=== PATIENT | male | born 1950 | race Caucasian/White ===

== ENCOUNTER 2024-04-12 16:31 | Inpatient (IN) | payer MEDICARE, SELFPAY ==
[2024-04-12] VITALS (34 sets, daily range): BP systolic 99–167; BP diastolic 57–97; PULSE 54–108; RESP 18–32; TEMP 37.3–38.5; O2SAT 88–98; BMI 31.3; BMI 33.0
--- NOTE | 2024-04-12 16:53 | ED.FALL ---
HPI - Fall General Time Seen by Provider: 16:54 Date Seen: 04/12/24 Chief Complaint: Fall/Minor Trauma Stated Complaint: fall from tractor/short of breath Time Seen by Provider: 04/12/24 16:33 History of Present Illness HPI Narrative: This 73-year-old male is coming into the ER accompanied by his with complaint of significant right chest wall and flank pain after an injury on Saturday. He fell off the tractor off the stairs on Saturday when a rigoberto of wind swung the door opened. He lost his hold and fell onto the axle of his tractor on the right side. He got right back up and got into the tractor and went to work. Sleep has been difficult, has had to sleep in the chair for comfort. He cannot lie flat due to pain and difficulty breathing. He notes no fevers, there is maybe some cough. He has never had any congestive heart failure, is never been diagnosed with any COPD or emphysema. His notes that he got hit in the chest by a a 4000 lb bull, has had a history of chest trauma with that. They have not noted any fevers. He denies any lower extremity edema. No abdominal symptoms. Patient was noted to be hypoxic on arrival and did quickly expedite his evaluation. The trauma is noted to have happened 5 days ago. Patient is denying any significant difficulty breathing, does not really complain of being short of breath but when I press him on this, he does state that he might have some shortness of breath with this. Denies any back pain. complaint: fall Fall witnessed: no Loss of consciousness: No Related Data Home Medications ?Medication ?Instructions ?Recorded ?Confirmed lisinopril 10 1 tab PO DAILY 04/12/24 04/12/24 mg-hydrochlorothiazide 12.5 mg tablet Allergies Allergy/AdvReac Type Severity Reaction Status Date / Time No Known Drug Allergies Allergy Verified 04/12/24 16:43 Review of Systems Status of ROS: Reports: 6 or more systems reviewed and unremarkable except as noted in History and below [facility] Social History Smoking Status: Never smoker How often do you have a drink containing alcohol: monthly or less How often do you have six or more drinks on one occasion: Never AUDIT-C Alcohol total score: 1 Non-prescribed substance use: denies use Exam Const: Vital Signs, click to edit/add: Vital Signs - 24 hr 04/12/24 16:44 04/12/24 16:57 04/12/24 17:00 Temperature 99.2 F Pulse Rate Pulse Rate [Pulse Oximeter] 86 Respiratory Rate 32 H Blood Pressure Blood Pressure [Le ft Upper Arm] 167/97 H Pulse Oximetry 88 95 Oxygen Delivery Me thod Room Air Nasal Cannula Oxygen Flow Rate 5 04/12/24 17:17 04/12/24 17:30 04/12/24 17:33 Temperature Pulse Rate 97 81 95 Pulse Rate [Pulse Oximeter] Respiratory Rate Blood Pressure 153/92 H Blood Pressure [Le ft Upper Arm] Pulse Oximetry 94 88 90 Oxygen Delivery Me thod Nasal Cannula Nasal Cannula Nasal Cannula Oxygen Flow Rate 5 5 5 04/12/24 17:49 04/12/24 17:50 04/12/24 17:51 Temperature Pulse Rate 91 108 H 108 H Pulse Rate [Pulse Oximeter] Respiratory Rate Blood Pressure Blood Pressure [Le ft Upper Arm] Pulse Oximetry 92 93 90 Oxygen Delivery Me thod OxyMask OxyMask OxyMask Oxygen Flow Rate 8 8 8 04/12/24 18:00 04/12/24 18:02 04/12/24 18:03 Temperature Pulse Rate 106 H 98 100 Pulse Rate [Pulse Oximeter] Respiratory Rate Blood Pressure 146/92 H Blood Pressure [Le ft Upper Arm] Pulse Oximetry 94 94 95 Oxygen Delivery Me thod OxyMask OxyMask OxyMask Oxygen Flow Rate 8 8 8 04/12/24 18:04 04/12/24 18:15 04/12/24 18:17 Temperature Pulse Rate 91 95 Pulse Rate [Pulse Oximeter] Respiratory Rate 28 H Blood Pressure 111/79 Blood Pressure [Le ft Upper Arm] Pulse Oximetry 93 90 Oxygen Delivery Me thod OxyMask OxyMask Oxygen Flow Rate 8 8 04/12/24 18:30 04/12/24 18:32 04/12/24 18:45 Temperature Pulse Rate 95 86 89 Pulse Rate [Pulse Oximeter] Respiratory Rate Blood Pressure 124/77 Blood Pressure [Le ft Upper Arm] Pulse Oximetry 95 93 93 Oxygen Delivery Me thod OxyMask OxyMask OxyMask Oxygen Flow Rate 8 8 8 04/12/24 18:46 04/12/24 19:00 04/12/24 19:02 Temperature Pulse Rate 90 85 85 Pulse Rate [Pulse Oximeter] Respiratory Rate Blood Pressure 123/71 111/57 L Blood Pressure [Le ft Upper Arm] Pulse Oximetry 94 92 92 Oxygen Delivery Me thod OxyMask OxyMask OxyMask Oxygen Flow Rate 8 8 8 Patient is alert, interactive, in obvious discomfort, can barely touch his right lateral chest wall, there is bruising on the lower lateral chest wall into his flank and side area. He has oxygen on, is able to speak in short phrases. His glasses are fogging from the oxygen mask at times but underlying pupils look equal round, conjugate gaze, sclera clear. Face appears atraumatic. Denies any midline tenderness over his neck or his spine. Lungs have rhonchi and some crackles throughout come here no wheezing. CV regular rate and rhythm, do not appreciate any murmur, normal S1-S2, no S3-S4. Abdomen is soft, nondistended, nontender but this is done with him sitting up, is not tolerating lying back at this point. He has about 1+ to 2+ pretibial edema above his socks. Documenting provider has reviewed patient's vital signs: yes Course Course ED Course: This patient is hypoxic and possibly with low level temperature elevation. Have concerns for immediate evaluation with portable CXR to ensure no hemothorax or pneumothorax. Will be obtaining CT of chest abdomen pelvis as well if there is stability on his chest x-ray. If there is acute traumatic change visualized on the chest x-ray, may need to consider immediate transfer to a tertiary trauma center. He will be getting supplemental oxygen, will have him on hemodynamic monitoring with cardiac monitoring and pulse oximetry. Portable chest x-ray visualized after was done and I do not see any pneumothorax no definite significant effusion or consolidation. Patient will be proceeding to CT imaging. Nursing staff does not feel that he will tolerate lying flat, we will give him fentanyl and Zofran. Reevaluation(s) Time of Reevaluation #1: 18:27 Reevaluation #1: Patient is feeling much better, states he has no pain now. He is actually resting in falling asleep. He does sound a bit gurgly, have discussed with him he should try to cough if he feels like he needs to. Have reviewed with he and his and they would not want intubation if he should become ill enough to need it. Did review that on my preliminary review of his imaging, believe him to have posttraumatic pneumonia likely from poor mechanics of breathing. We have initiated Rocephin and azithromycin, he is getting the Rocephin right now. We are awaiting formal imaging review by Radiology of his CT scans. Consultations Consultation #1: After receiving phone call from Radiology in reviewing his CT findings, have discussed with hospitalist Dr. Love. Patient has right posterior 7 through 9 rib fractures left 11th rib fracture. She is able to see acute PE in the proximal segmental right upper lobe, small amount. There is motion artifact. There is a small right effusion as well as dense consolidation in the right base consistent with pneumonia. Dr. Love would like this patient started on heparin given that there is recent trauma. Antibiotics have already been started. He is receiving supplemental oxygen. His pain is currently controlled. Did ask if he wanted me to contact our general surgeons but this patient is 5 days post trauma, complication seem to be pneumonia and the pulmonary embolus. Dr. Love does not feel it is necessary to contact the surgeons, 1 of the reasons he is starting heparin is given that this is in relation to recent trauma and may need these of stopping the heparin if there is bleeding complication. Time: 19:03 Vital Signs Vital signs: Initial Vital Signs Temperature 99.2 F 04/12/24 16:44 Temperature Source Temporal Artery Scan 04/12/24 16:44 Pulse Rate 86 04/12/24 16:44 Respiratory Rate 32 H 04/12/24 16:44 Blood Pressure 167/97 H 04/12/24 16:44 Blood Pressure Mean 120 H 04/12/24 16:44 Blood Pressure Position Sitting 04/12/24 16:44 Pulse Oximetry 88 04/12/24 16:44 Oxygen Delivery Method Room Air 04/12/24 16:44 Vital Signs Temperature 99.2 F 04/12/24 16:44 Pulse Rate 86 04/12/24 16:44 Respiratory Rate 32 H 04/12/24 16:44 Blood Pressure 167/97 H 04/12/24 16:44 Pulse Oximetry 88 04/12/24 16:44 Oxygen Delivery Method Room Air 04/12/24 16:44 Temperature 99.2 F 04/12/24 16:44 Pulse Rate 85 04/12/24 19:02 Respiratory Rate 28 H 04/12/24 18:04 Blood Pressure 111/57 L 04/12/24 19:02 Pulse Oximetry 92 04/12/24 19:02 Oxygen Delivery Method OxyMask 04/12/24 19:02 Oxygen Flow Rate 8 04/12/24 19:02 Medications Administered Medications: Generic Name Dose Route Start Last Admin Trade Name Freq PRN Reason Stop Dose Admin Heparin Sodium/Dextrose 25,000 unit in 500 mls @ 0 mls/hr 04/12/24 19:15 04/12/24 19:23 Heparin IV 1,500 unit/hr .Q0M LEEANN 30 mls/hr Administration Protocol Per Protocol Discontinued Medications Generic Name Dose Route Start Last Admin Trade Name Freq PRN Reason Stop Dose Admin Fentanyl 50 mcg 04/12/24 17:18 04/12/24 17:27 Fentanyl 100 Mcg/2 Ml Inj IVP 04/12/24 17:19 50 mcg ONCE ONE Administration Heparin Sodium (Porcine) 7,300 unit 04/12/24 19:04 04/12/24 19:24 Heparin 5,000 Unit/0.5 Ml Inj 80 unit/kg (7300 unit) 04/12/24 19:05 7,300 unit IVP Administration ONCE ONE Ceftriaxone Sodium 1 gm/ 100 mls @ 200 mls/hr 04/12/24 18:02 04/12/24 18:45 Sodium Chloride IVPB 04/12/24 18:03 Infused ONCE ONE Infusion Azithromycin 500 mg/ Sodium 255 mls @ 255 mls/hr 04/12/24 18:09 04/12/24 18:45 Chloride IVPB 04/12/24 18:10 255 mls/hr ONCE ONE Administration Ondansetron HCl 4 mg 04/12/24 17:18 04/12/24 17:26 Ondansetron 2 Mg/Ml Inj IVP 04/12/24 17:19 4 mg ONCE ONE Administration MDM - Fall Lab Data Attestation: I reviewed the patient's lab results. Labs: Lab Results 04/12/24 04/12/24 Range/Units 16:59 17:00 WBC 15.68 H (4.50-11.00) K/uL RBC 4.90 (4.30-5.90) m/uL Hgb 15.0 (13.5-17.5) gm/dL Hct 46.2 (37.0-53.0) % MCV 94 (80-100) fL MCH 31 (26-34) pg MCHC 33 (32-36) gm/dL RDW Coeff of Milka 12.8 (11.5-15.5) % Plt Count 293 (140-440) K/uL Neut % (Auto) 82.3 H (42.0-72.0) % Lymph % (Auto) 6.4 L (20-44) % [place] % (Auto) 10.8 (0.0-11.0) % Eos % (Auto) 0.2 (0.0-7.0) % Baso % (Auto) 0.2 (0.0-3.0) % Neut # (Auto) 12.90 H (1.7-7.0) K/uL Lymph # (Auto) 1.00 (0.90-2.90) K/uL [place] # (Auto) 1.70 H (0.00-0.90) K/UL Eos # (Auto) 0.00 (0.00-0.50) K/uL Baso # (Auto) 0.00 (0.00-0.30) K/uL Abs Immat Gran (auto) 0.00 (0.00-0.30) K/uL Imm/Tot Granulo (auto) 0.1 % INR 1.06 (0.91-1.10) APTT 29 (23-33) Seconds D-Dimer Quant (PE/DVT) 3.44 H (0.00-0.50) ug/ml VBG pH 7.422 (7.32-7.43) VBG pCO2 46 (40-50) mmHG VBG pO2 < 30.1 (25-47) mmHG VBG HCO3 30 H (21-28) mmol/L Sodium 138 (135-149) mmol/L Potassium 4.1 (3.6-5.1) mmol/L Chloride 101 (96-114) mmol/L Carbon Dioxide 28 (20-32) mmol/L Anion Gap 9 (7-15) mEq/L BUN 20 (7-30) mg/dL Creatinine 0.7 (0.5-1.5) mg/dL Estimated Creat Clear 59.67 Estimated GFR 96 ml/min Glucose 133 H (60-115) mg/dL Lactate 1.7 (0.5-1.9) mmol/L Calcium 9.7 (8.4-10.6) mg/dL Total Bilirubin 1.3 (0.1-1.5) mg/dL AST 28 (12-35) U/L ALT 29 (4-50) U/L Alkaline Phosphatase 40 (40-150) U/L Total Creatine Kinase 59 (54-186) U/L Troponin I < 0.01 L (0.01-0.04) ng/mL C-Reactive Protein 6.0 H (0.5-1.0) mg/dL NT-Pro-B Natriuret Pep 306 pg/mL Total Protein 7.9 (6.0-8.3) g/dL Albumin 4.4 (3.3-5.0) g/dL SARS-CoV-2 (PCR) Negative SARS-CoV-2 (Negative) Influenza Type A (PCR) Negative PCR FLU A (Negative) Influenza Type B (PCR) Negative PCR FLU B (Negative) RSV (PCR) Negative PCR RSV (Negative) POC Creatinine 0.7 (0.6-1.3) mg/dl POC Troponin I 0.00 L (0.01-0.04) ng/ml Imaging Data Chest x-ray: Attestation: I have reviewed the pertinent imaging results. Radiologist's impression: Patient: PARIS ELLIE Facility:?[facility] Patient ID:?[id number] Site Patient ID:?[id number]. Site :?[id number] Study:?XRay-Chest Portable-04/12/2024 5:17:53 PM Ordering Physician:?Kari Solorzano Final Report: INDICATION: Trauma, hypoxic TECHNIQUE: Chest 1 views. COMPARISON: 04/30/2021 FINDINGS: Cardiovasculature and mediastinum: Similar cardiomegaly and aortic arch calcifications. Unremarkable mediastinum. Lungs and pleural spaces: Patchy opacities in the right lung base and left upper lung are new compared to 2020. No large pleural effusion or pneumothorax. Bones and soft tissues: Degenerative change of the bilateral glenohumeral joints IMPRESSION: 1. Patchy opacities in the right lung base and left upper lung are new compared to 2020 and could reflect edema or multifocal pneumonia. 2. Similar cardiomegaly. Dictated by Dottie Robledo MD @ 04/12/2024 5:47:07 PM (Electronic Signature) CT Chest/Ab/Pelvis: Attestation: I have reviewed the pertinent imaging results. Radiologist's impression: Patient: PARIS ARGUETA Facility:?[facility] Patient ID:?[id number] Site Patient ID:?[id number]. Site :?[id number] Study:?CT-Chest/Abd/Pelvis W/ 98CC [id number]/13/2024 5:48:17 PM Ordering Physician:?Kari Solorzano Final Report: INDICATION: Hypoxia, chest wall trauma Saturday. TECHNIQUE: CT of the chest, abdomen, and pelvis acquired with 98 cc Isovue 370 IV contrast. Coronal and sagittal reconstructions. COMPARISON: CT chest 04/30/2021. FINDINGS: CHEST: Cardiovascular structures: Mild cardiomegaly. Normal caliber thoracic aorta and central pulmonary arteries. Coronary artery and aortic vascular calcifications. Evaluation of the pulmonary arteries is limited by motion artifact and contrast bolus timing, however there appear to be acute pulmonary emboli within proximal segmental branches of the right upper lobe (series 2 images 31-33). No other definite pulmonary emboli. No findings to suggest right heart strain. Mediastinum and dolly: No pathologically enlarged lymph nodes. No pericardial effusion or mediastinal hematoma. Lungs and pleura: Small right pleural effusion. There is dense consolidation in the medial right lower lobe with air bronchograms and surrounding micronodular opacities. Findings are suspicious for pneumonia. Additional nodular ground-glass opacities in the right middle lobe. No pneumothorax. New 5 mm noncalcified pulmonary nodule in the lateral right lower lobe (series 3 image 51). Right lung bronchial wall thickening and probable debris in the trachea/mainstem bronchi. Chest wall: No mass or adenopathy. Bones: Degenerative changes of the spine with multilevel bridging anterior vertebral body osteophytes. Chronic mild anterior wedging of the T12 vertebral body. Chronic discontinuity of the bridging osteophyte at T11-12. Stable bone island in the T11 vertebral body. Sclerotic lesion in the C7 vertebral body which was partially visualized on the prior exam. Old left clavicle fracture. Acute nondisplaced fractures of the right posterior 7th-9th ribs. Acute nondisplaced fracture of the left posterior 11th rib. ABDOMEN/PELVIS: Liver: Normal in size and attenuation. No suspicious masses. Gallbladder and bile ducts: Cholelithiasis with a large stone in the gallbladder neck but no signs of gallbladder inflammation. No biliary dilation. Spleen: Unremarkable. Pancreas: Unremarkable. Adrenal glands: Unremarkable. Kidneys, Ureters, and Bladder: Symmetric enhancement. No hydronephrosis or obstructing urinary calculi. No significant bladder wall thickening. Reproductive organs: Enlarged prostate gland with a 3 cm masslike nodule in the left posterior gland as well as a nodular density in the left seminal vesicles (series 7 images 105-111). GI tract/Peritoneum: No small bowel dilation. Moderate amount of stool throughout the colon. Colonic diverticulosis without evidence of diverticulitis. Negative appendix. No intraperitoneal free air or fluid. Vasculature: Abdominal aorta is normal in caliber. Aortoiliac vascular calcifications. Mesenteric arteries appear patent. Lymph nodes: Mildly prominent left pelvic sidewall lymph nodes. Abdominal wall: Fat containing umbilical hernia. Subcutaneous fat stranding in the right anterior abdominal wall. Bones: Degenerative changes of the spine. Chronic L1 compression fracture with progressive degenerative disc disease at L1-L2 since prior exam. Mild retrolisthesis of L2 on L3. No acute fracture identified. IMPRESSION: 1. Acute pulmonary emboli within proximal segmental branches of the right upper lobe. No findings to suggest right heart strain. 2. Small right pleural effusion with dense right lower lobe consolidation and additional nodular ground-glass opacities suspicious for pneumonia. 3. Acute nondisplaced fractures of the right posterior 7th-9th ribs and left posterior 11th rib. 4. Enlarged prostate gland with masslike nodules in the left gland and left seminal vesicles. Correlate with PSA and digital rectal exam. 5. Subcutaneous fat stranding in the right anterior abdominal wall could relate to contusion. 6. Findings discussed with Jeanine Pierce at 6:57 p.m. on 04/12/2024. Please note that all CT scans at this facility use dose modulation, iterative reconstruction, and/or weight-based dosing when appropriate to reduce radiation dose to as low as reasonably achievable. Dictated by Yvonne Simmons MD @ 04/12/2024 6:59:34 PM (Electronic Signature) ECG Data Attestation: I personally reviewed and interpreted this ECG as follows: (Sinus rhythm with PVCs, 91 beats per minute. There is certainly artifact but appears to have possible anterior precordial ST segment depression, difficult given the artifact.) ECG interpretation date: 04/12/24 ECG interpretation time: 17:15 Discharge Plan Discharge Clinical Impression: Hypoxia Multiple fractures of ribs Qualifiers: Encounter type: initial encounter Fracture type: closed Laterality: bilateral Qualified Code(s): S22.43XA - Multiple fractures of ribs, bilateral, initial encounter for closed fracture Pneumonia Qualifiers: Pneumonia type: due to unspecified organism Laterality: right Lung location: lower lobe of lung Qualified Code(s): J18.9 - Pneumonia, unspecified organism Pulmonary embolism Qualifiers: Pulmonary embolism type: single subsegmental (without acute cor pulmonale) Qualified Code(s): I26.93 - Single subsegmental thrombotic pulmonary embolism without acute cor pulmonale Patient Disposition: Admitted As Observation Prescriptions: No Action lisinopril-hydrochlorothiazide 10-12.5 mg tablet 1 tab PO DAILY Follow Up/Referrals: Provider,Not a Local [Primary Care Provider] - Stand Alone Forms: Fin Quiver Info Instructions
--- NOTE | 2024-04-12 16:57 | CRLHL7_ITS ---
For Patients: As a result of the Century Cures Act, medical imaging exams and procedure reports are released immediately into your electronic medical record. You may view this report before your referring provider. If you have questions, please contact your health care provider. INDICATION: Trauma, hypoxic TECHNIQUE: Chest 1 views. COMPARISON: 04/30/2021 FINDINGS: Cardiovasculature and mediastinum: Similar cardiomegaly and aortic arch calcifications. Unremarkable mediastinum. Lungs and pleural spaces: Patchy opacities in the right lung base and left upper lung are new compared to 202. No large pleural effusion or pneumothorax. Bones and soft tissues: Degenerative change of the bilateral glenohumeral joints IMPRESSION: 1. Patchy opacities in the right lung base and left upper lung are new compared to 202 and could reflect edema or multifocal pneumonia. 2. Similar cardiomegaly. Dictated by Dottie Robledo MD @ 04/12/2024 5:47:07 PM (Electronically Signed)
--- NOTE | 2024-04-12 16:57 | CRLHL7_ITS ---
For Patients: As a result of the Century Cures Act, medical imaging exams and procedure reports are released immediately into your electronic medical record. You may view this report before your referring provider. If you have questions, please contact your health care provider. INDICATION: Hypoxia, chest wall trauma Saturday. TECHNIQUE: CT of the chest, abdomen, and pelvis acquired with 98 cc Isovue 370 IV contrast. Coronal and sagittal reconstructions. COMPARISON: CT chest 04/30/2021. FINDINGS: CHEST: Cardiovascular structures: Mild cardiomegaly. Normal caliber thoracic aorta and central pulmonary arteries. Coronary artery and aortic vascular calcifications. Evaluation of the pulmonary arteries is limited by motion artifact and contrast bolus timing, however there appear to be acute pulmonary emboli within proximal segmental branches of the right upper lobe (series 2 images 31-33). No other definite pulmonary emboli. No findings to suggest right heart strain. Mediastinum and dolly: No pathologically enlarged lymph nodes. No pericardial effusion or mediastinal hematoma. Lungs and pleura: Small right pleural effusion. There is dense consolidation in the medial right lower lobe with air bronchograms and surrounding micronodular opacities. Findings are suspicious for pneumonia. Additional nodular ground-glass opacities in the right middle lobe. No pneumothorax. New 5 mm noncalcified pulmonary nodule in the lateral right lower lobe (series 3 image 51). Right lung bronchial wall thickening and probable debris in the trachea/mainstem bronchi. Chest wall: No mass or adenopathy. Bones: Degenerative changes of the spine with multilevel bridging anterior vertebral body osteophytes. Chronic mild anterior wedging of the T12 vertebral body. Chronic discontinuity of the bridging osteophyte at T11-12. Stable bone island in the T11 vertebral body. Sclerotic lesion in the C7 vertebral body which was partially visualized on the prior exam. Old left clavicle fracture. Acute nondisplaced fractures of the right posterior 7th-9th ribs. Acute nondisplaced fracture of the left posterior 11th rib. ABDOMEN/PELVIS: Liver: Normal in size and attenuation. No suspicious masses. Gallbladder and bile ducts: Cholelithiasis with a large stone in the gallbladder neck but no signs of gallbladder inflammation. No biliary dilation. Spleen: Unremarkable. Pancreas: Unremarkable. Adrenal glands: Unremarkable. Kidneys, Ureters, and Bladder: Symmetric enhancement. No hydronephrosis or obstructing urinary calculi. No significant bladder wall thickening. Reproductive organs: Enlarged prostate gland with a 3 cm masslike nodule in the left posterior gland as well as a nodular density in the left seminal vesicles (series 7 images 105-111). GI tract/Peritoneum: No small bowel dilation. Moderate amount of stool throughout the colon. Colonic diverticulosis without evidence of diverticulitis. Negative appendix. No intraperitoneal free air or fluid. Vasculature: Abdominal aorta is normal in caliber. Aortoiliac vascular calcifications. Mesenteric arteries appear patent. Lymph nodes: Mildly prominent left pelvic sidewall lymph nodes. Abdominal wall: Fat containing umbilical hernia. Subcutaneous fat stranding in the right anterior abdominal wall. Bones: Degenerative changes of the spine. Chronic L1 compression fracture with progressive degenerative disc disease at L1-L2 since prior exam. Mild retrolisthesis of L2 on L3. No acute fracture identified. IMPRESSION: 1. Acute pulmonary emboli within proximal segmental branches of the right upper lobe. No findings to suggest right heart strain. 2. Small right pleural effusion with dense right lower lobe consolidation and additional nodular ground-glass opacities suspicious for pneumonia. 3. Acute nondisplaced fractures of the right posterior 7th-9th ribs and left posterior 11th rib. 4. Enlarged prostate gland with masslike nodules in the left gland and left seminal vesicles. Correlate with PSA and digital rectal exam. 5. Subcutaneous fat stranding in the right anterior abdominal wall could relate to contusion. 6. Findings discussed with Jeanine Pierce at 6:57 p.m. on 04/12/2024. Please note that all CT scans at this facility use dose modulation, iterative reconstruction, and/or weight-based dosing when appropriate to reduce radiation dose to as low as reasonably achievable. Dictated by Yvonne Simmons MD @ 04/12/2024 6:59:34 PM (Electronically Signed)
[2024-04-12 17:13] LABS: HCO3 VBG 30 mmol/L (21-28); Lactate* 1.7 mmol/L (0.5-1.9); PCO2 VBG 46 mmHG (40-50); PO2 VBG < 30.1 mmHG (25-47); pH VBG 7.422 (7.32-7.43)
--- OUTSIDE RECORDS SUMMARY | 2024-04-12 17:15 | XMS_ITS | Data Portability ---
Author Organization [facility], [facility] Address [address] [place] [address] Assessment Encounter Date Assessment Date Assessment LastModified by Organization Details LastModified Time 05/08/2023 05/08/2023 72 year old male with elevated PSA of uncertain prognosis [email or web address] Not available 05/08/2023 13:40:55 Plan of Treatment Reminders Order Date Submit Date Provider Last Modified By Organization Details Last Modified Time Details Appointments None record ed. Lab None record ed. Referral None record ed. Procedures None record ed. Surgeries None record ed. Imaging None record ed. Medication Orders None record ed. Patient TargetsNo targets recorded. Patient InstructionsNo instructions recorded. Reason for Referral None Reported. Results Created Date Observation Date Name Description Value Unit Range Abnormal Flag Note LastModifiedBy Organization Detail LastModifiedTime Result Notes None recorded. Procedures Surgical History Date Name Laterality Status Provider Name and Address Organization Details Recorded Time total knee replacement completed Charlotte Garner [facility] 05/08/2023 11:51:29 Imaging Results None recorded. Procedure Notes None recorded. Medical Equipment None Reported. Allergies No known drug allergies Medications Name Sig Start Date Stop Date Status Note LastModified by Organization Details LastModified Time terbinafine HCl 250 mg tablet TAKE 1 TABLET BY MOUTH ONCE DAILY active Not Available Not Available No t Available cephalexin 500 mg capsule TAKE 2 CAPSULES BY MOUTH TWICE DAILY FOR 7 DAYS active Not Available Not Available No t Available lisinopril 10 mg-hydrochlor othiazide 12.5 mg tablet TAKE 1 TABLET BY MOUTH ONCE DAILY active Not Available Not Available No t Available Vitals Date Recorded Body weight Body mass index (BMI) Body height Provider Name and Address Organization Details Last Updated DateTime 05/08/2023 75606.95 g 35.9 kg/m2 165.1 cm Charlotte Garner [facility] 05/08/2023 11:50:15 Social History Question Answer Notes LastModified by Organizat ion Details LastModified Time Tobacco Smoking Status Never Smoker Charlotte brown [facility] 05/08/2023 11:51:13 What Is Your Level Of Alcohol Consumption? Occasional Information not available 05/08/2023 What Was The Date Of Your Most Recent Tobacco Screening? 05/08/2023 Information not available 05/08/2023 Has Tobacco Cessation Counseling Been Provided? No Information not available 05/08/2023 Do You Or Have You Ever Used Any Other Forms Of Tobacco Or Nicotine? No Information not available 05/08/2023 Sex: Unknown Functional Status None recorded. Mental Status None recorded. Family History Relationship Description Onset Age of this Age Resolved Age Notes LastModified by Organization Details LastModified Time Paternal Uncle Family history of breast cancer [email or web address] Not available 01/2023 11:51:01 Medical History Condition Response Other N High Blood Pressure Y Kidney Stones N Lung Disease N Depression N GERD/Acid Reflux N Diabetes N Sexually Transmitted Infection N Bleeding Disorder N Cancer N High Cholesterol N Heart Disease N Immunizations Vaccine Type Date Status Provider Name and Address Organization Details Recorded Time Influenza, adjuvanted, quadrivalent, PF [facility]17[facility] 11:50:26 pneumococcal polysaccharide PPV23 01/27/2021 completed Charlotte brown [facility] 05/08/2023 11:50:27 [facility]dap 05/21/2016 [facility] 11:50:27 Pneumococcal conjugate PCV 13 05/21/2016 completed Charlotte brown [facility] 05/08/2023 11:50:27 Influenza, split virus, trivalent, preservative 04[facility]26/2010 [facility]23 11:50:27 Td (adult), 2 Lf tetanus toxoid, preservative free, adsorbed [facility]/19/2005 [facility] 11:50:27 Past Encounters Encounter ID Performer Location Encounter Start Date Encounter Closed Date Diagnosis/Indication Diagnosis SNOMED-CT Code Diagnosis ICD10 Code [id number] Laith Rodriguez MD [facility] [address] [place] [id number] 05/08/2023 11:29:46 05/14/2023 09:29:55 Prostate specific antigen above reference range 616594173 R97.20 Health Concerns Section Related Observation LastModified by Organization Detai ls LastModified Time None Recorded Concern Status LastModified by Organization Details LastModified Time None Recorded Advance Directives Directive None Recorded Payers Encounter Date Sequence Insurance Name Policy Number Policy Feng Covered Member ID Feng Member ID Guarantor Name 05/08/2023 1 [employer] (MEDICARE [place]PLACEMENT PPO) [id number] Chin Kemp [id number] Chin Kemp Notes Date Note Type Note Provider Name and Address Organization Details Recorded Time 05/08/2023 text/html HPI Notes: Mr. Kemp is a pleasant 72 year old gentleman who is referred to me by his primary care provider, Jelena NELSON, regarding elevated PSA. Patient has undergone PSA screening as part of his annual well visit and has been noted to be elevated. Initially measured at 36.8 ng/mL, recheck confirmed elevation to 40.1 ng/mL Family history of prostate cancer: None. Sister of breast cancer at age 48 yrs. Seen today with his who provides some of the history. Laith Rodriguez MD [address] [place] [address],[address], [place], [address], [facility] Urology 05/08/2023 13:40:59
--- OUTSIDE RECORDS SUMMARY | 2024-04-12 17:15 | XMS_ITS | Clinical Summary ---
Author Organization [facility] Address [place], [place] [address] Care Team Providers Care Rn Sane Name Role Phone Kendrick Haddad Primary Care Provider [phone] Allergies No known active allergies Medications Medication Sig Dispensed Refills Start Date End Date Status lisinopril-hydrochlor othiazide (10-12.5 mg) tablet (PRINZIDE; ZESTORETIC)Indication s:HTN (hypertension) Take 1 Tablet by mouth once daily. 90 Tablet 3 04/02/2023 Active terbinafine HCL (LAMISIL) 250 mg tabletIndications:Perla lulitis of skin Take 1 Tablet (250 mg) by mouth once daily. 30 Tablet 05/07/2023 Active Active Problems Problem Noted Date Diagnosed Date Mild dementia without behavi oral disturbance, psychotic disturbance, mood disturbance, or anxiety, unspecified dementia type 04/25/2022 Paroxysmal atrial fibrillati on with rapid ventricular response 04/25/2022 Hammer toe 05/10/2016 display director (current) use of anticoagulants 2009 Overview (08/01/2009): INR goal Range 1.5 - 2.5 HTN (hypertension) Resolved Problems Problem Noted Date Diagnosed Date Resolved Date Toe ulcer, right 04/22/2016 12/19/2017 Immunizations Name Administration Dates Next Due Influenza, IIV3 (Age >=3 years) 04/26/2010 Influenza, Inactivated AIIV4 (Age 65+ Years) Preserv Free 05/17/2021 Pneumococcal Poly,23-Valent (Pneumovax) 01/28/20 21 Pneumococcal conj 13-Valent (Prevnar 13) 016 Td (Age >=7 Years) 01/19/2005 Tdap 05/21/2016 Family History Medical History Relation Name Comments Diabetes Brother 1 Hilario Unknown Brother 2 Joby Other Father Alzheimers- d at age 80 Arthritis Mother Heart Disease Mother Cancer-breast Sister Analy Good Health Son Relation Name Status Comments Brother 1 Hilario Alive Brother 2 Joby Alive Father Maternal Grandfather Maternal Grandmother Mother Paternal Grandfather Paternal Grandmother Sister Analy Son Alive Social History Tobacco Use Types Packs/Day Years Used Date Smoking Tobacco: Never Smokeless Tobacco: Never Tobacco Cessation:Counseling Given: Yes Alcohol Use Standard Drinks/Week Comments Yes 1 (1 standard drink = 0.6 oz pur e alcohol) one beer per week or less PHQ-2 Answer Date Recorded PHQ-2 TOTAL SCORE 1 04/02/2023 Social Connections Answer Date Recorded Frequency of Communication with Friends and Fami ly Not on file 06/29/2021 Financial Resource Strain Answer Date R ecorded Difficulty of Paying Living Expenses Not on file 06/29/2021 Difficulty of Paying Living Expenses Not on file 06/29/2021 Sex and Gender Information Value Date Recorded Sex Assigned at Not on file Gender Identity Not on file Sexual Orientation Not on file Obstetrics History Last Filed Vital Signs Vital Sign Reading Time Taken Comments Blood Pressure 134/66 05/01/2023 1:10 PM CDT Pulse 52 05/01/2023 1:10 PM CDT Temperature 36.6 ??C (97.8 ??F) 05/01/2023 1:10 PM CD T Respiratory Rate - - Oxygen Saturation 97% 05/01/2023 1:10 PM CDT Inhaled Oxygen Concentration - - Weight 99.5 kg (219 lb 6.4 oz) 05/01/2023 1:10 P M CDT Height 165.1 cm (5' 5) 05/01/2023 1:10 PM CDT Body Mass Index 36.51 05/01/2023 1:10 PM CDT Plan of Treatment Health Maintenance Due Date Last Done Comments Hepatitis C screening for ag e 18-79 1966 Colonoscopy through age 75 1993 Zoster (shingles) series for age 50+ (1 of 2) 1998 RSV vaccine for adults or (1 - 1-dose 75+ series) 10/18/2023 COVID-19 vaccine series (1 season) 2024 Influenza for age 65+ 03/01/2024 05/17/2021, 010 Medicare Wellness for age 65+ 04/02/2024 04/02/2023 Depression screening for age 12+ 04/04/2024 04/04/2023, 04/04/2023, 04/02/2023, Additional history exists BMI (ht and wt on same day) for age 18+ 05/01/2024 05/01/2023, 04/02/2023, 10/06/2020, Additional history exists Tetanus booster 05/21/2026 05/21/2016, 01/19/2005 Lipids for age 45-75 04/02/2028 04/02/2023, 06/07/2022, 04/25/2022, Additional history exists Tdap Completed 05/21/2016 Pneumococcal series for age 65+ Completed , 05/21/2016 Procedures Procedure Name Priority Date/Time Associated Diagnosis Comments LIPID PANEL W REFLEX MEASURED LDL Routine 04/02/2023 1:15 PM CDT Screening for cholesterol level from Last 3 Months or Most Recently Relevant to Health Maintenance Results * (ABNORMAL) LIPID PANEL W REFLEX MEASURED LDL (04/02/2023 1:15 PM CDT) CHOLESTEROL,TOTAL 184 100 - 199 mg/dL 04/03/2023 4:23 AM CDT [facility] Comment: Cholesterol, Total Reference Ranges Desirable <200 mg/dL Borderline 200-239 mg/dL High >=240 mg/dL TRIGLYCERIDES 87 <150 mg/dL 04/03/2023 4:23 AM CDT [facility] HDL CHOLESTEROL 37(L) >40 mg/dL 4:23 AM CDT [facility] NON-HDL CHOLESTEROL 147(H) <145 mg/dl 04/03/2023 4:23 AM CDT [facility] CHOL/HDL RATIO 4.97(H) <4.50 04/03/2023 4:23 AM CDT [facility] LDL CHOLESTEROL 130 <=130 mg/dL 04/03/2023 4:23 AM CDT [facility] VLDL CHOLESTEROL 17 <=30 mg/dL 04/03/2023 4:23 AM CDT [facility] PROVIDER ORDERED STATUS RANDOM 04/03/2023 4:23 AM CDT [facility] Blood BLOOD SPECIMEN / Unknown Venipuncture / Unknown 04/02/2023 1:15 PM CDT 04/02/2023 1:16 PM CDT Kendrick NELSON [facility]MISTRY [facility] [address] [place] [address], from Last 3 Months or Most Recently Relevant to Health Maintenance Care Teams Rn Sane Relationship Specialty Start [place] [address] [place] [address] PCP - General Family Practice 09/04/16
[2024-04-12 17:17] LABS: Basophils Percent Auto 0.2 % (0.0-3.0); Eosinophils Percent Auto 0.2 % (0.0-7.0); Hematocrit 46.2 % (37.0-53.0); Immature Granulocytes Pct Auto 0.1 %; Lymphocytes Percent Auto 6.4 % (20-44); Mean Corpuscular HGB Conc 33 gm/dL (32-36); Mean Corpuscular Hemoglobin 31 pg (26-34); Mean Corpuscular Volume 94 fL (80-100); Monocytes Percent Auto 10.8 % (0.0-11.0); Neutrophils Percent Auto 82.3 % (42.0-72.0); Platelet Count* 293 K/uL (140-440); RDW Coefficient of Variation % 12.8 % (11.5-15.5); White Blood Count* 15.68 K/uL (4.50-11.00)
[2024-04-12 17:24] LABS: Creatinine, Point-of-Care* 0.7 mg/dl (0.6-1.3)
[2024-04-12] MEDS: ONDANSETRON 2 MG/ML inj 4 MG IVP (17:26)
[2024-04-12] MEDS: fentaNYL 100 MCG/2 ML inj 50 MCG IVP (17:27)
[2024-04-12 17:31] LABS: Slide Review Reflex No
[2024-04-12 17:35] LABS: Albumin* 4.4 g/dL (3.3-5.0); Chloride* 101 mmol/L (96-114); Potassium* 4.1 mmol/L (3.6-5.1); Sodium* 138 mmol/L (135-149)
[2024-04-12 17:37] LABS: Bilirubin Total* 1.3 mg/dL (0.1-1.5); Creatine Kinase* 59 U/L (54-186); Creatinine* 0.7 mg/dL (0.5-1.5); D Dimer Quantitative* 3.44 ug/ml (0.00-0.50); Est. Creatinine Clearance* 59.67; Estimated Glomerular Filt Rate 96 ml/min
[2024-04-12 17:38] LABS: Alanine Aminotransferase* 29 U/L (4-50); Alkaline Phosphatase* 40 U/L (40-150); Anion Gap 9 mEq/L (7-15); Aspartate Amino Transferase* 28 U/L (12-35); Blood Urea Nitrogen* 20 mg/dL (7-30); Carbon Dioxide* 28 mmol/L (20-32); Total Protein* 7.9 g/dL (6.0-8.3)
[2024-04-12 17:39] LABS: Calcium* 9.7 mg/dL (8.4-10.6); Glucose* 133 mg/dL (60-115)
[2024-04-12 17:50] LABS: NT Pro B Type NatriureticPept* 306 pg/mL; Troponin I* < 0.01 ng/mL (0.01-0.04)
[2024-04-12 17:59] LABS: PCR FLU A Negative PCR FLU A (Negative); PCR FLU B Negative PCR FLU B (Negative); PCR RSV Negative PCR RSV (Negative); SARS PCR* Negative SARS-CoV-2 (Negative)
[2024-04-12] MEDS: cefTRIAXone 1 GM in 0.9 % SODIUM CHLORIDE Mini-bag 100 ML IVPB (18:12)
[2024-04-12] MEDS: AZITHROMYCIN 500 MG in 0.9 % SODIUM CHLORIDE 250 ml 250 ML 255 MG IVPB (18:45)
[2024-04-12 19:16] LABS: INR 1.06 (0.91-1.10); Prothrombin Time 14.5 Seconds
[2024-04-12 19:17] LABS: Partial Thromboplastin Time* 29 Seconds (23-33)
[2024-04-12] MEDS: HEPARIN 25,000 UNIT/500 ML BAG 30 UNIT IV (19:23)
[2024-04-12] MEDS: HEPARIN 5,000 UNIT/0.5 ML INJ 7300 UNIT IVP (19:24)
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
[2024-04-12] MEDS: SENNOSIDES/DOCUSATE TABLET PO (21:26)
[2024-04-12] MEDS: ACETAMINOPHEN 325 MG TABLET 650 MG PO (21:26)
[2024-04-12] MEDS: HEPARIN 25,000 UNIT/500 ML BAG 33 UNIT IV (22:31)
[2024-04-13] VITALS (20 sets, daily range): BP systolic 110–138; BP diastolic 63–77; PULSE 51–81; RESP 16–24; TEMP 36.7–37.9; O2SAT 87–97
[2024-04-13 01:40] LABS: Partial Thromboplastin Time* 151 Seconds (23-33)
[2024-04-13] MEDS: OXYCODONE 5 MG TABLET 2.5 MG PO ×2 (05:14→09:33)
[2024-04-13 06:12] LABS: HCO3 VBG 30 mmol/L (21-28); PCO2 VBG 48 mmHG (40-50); PO2 VBG 43.5 mmHG (25-47); pH VBG 7.409 (7.32-7.43)
[2024-04-13 06:17] LABS: Basophils Percent Auto 0.1 % (0.0-3.0); Eosinophils Percent Auto 0.4 % (0.0-7.0); Hematocrit 39.5 % (37.0-53.0); Hemoglobin* 12.8 gm/dL (13.5-17.5); Immature Granulocytes Pct Auto 0.2 %; Lymphocytes Percent Auto 10.3 % (20-44); Mean Corpuscular HGB Conc 32 gm/dL (32-36); Mean Corpuscular Hemoglobin 31 pg (26-34); Mean Corpuscular Volume 95 fL (80-100); Monocytes Percent Auto 12.2 % (0.0-11.0); Neutrophils Percent Auto 76.8 % (42.0-72.0); Platelet Count* 220 K/uL (140-440); Red Blood Count 4.15 m/uL (4.30-5.90); White Blood Count* 14.89 K/uL (4.50-11.00)
[2024-04-13 06:21] LABS: Slide Review Reflex No
--- NOTE | 2024-04-13 06:30 | PC.NURSE ---
End of shift note [id number]: Pt alert & oriented x 4 upon assessment. He transfers/ambulates with SBA using gait belt and FWW. Pt continent of bladder using bedside commode due to high-flow oxygen. IV to L AC patent with Heparin drip running per protocol. PTT at 0100 noted to be 151 with heparin drip adjusted per protocol. Pt on high-flow oxygen throughout the shift with 40 L 50-60 Fi02 and 36 degrees Celsius. Pt on tele with sinus arrhythmia noted. Temperatures of 99.7 and 99.0 this shift after PRN Tylenol given last evening. PRN Oxycodone administered for R back/rib pain noted with movement. Bed alarm on for safety and call light within reach. Pt using IS and Aerobika.
[2024-04-13 06:31] LABS: Chloride* 99 mmol/L (96-114); Potassium* 3.8 mmol/L (3.6-5.1); Sodium* 134 mmol/L (135-149)
[2024-04-13 06:34] LABS: Creatinine* 0.6 mg/dL (0.5-1.5); Estimated Glomerular Filt Rate 101 ml/min
[2024-04-13 06:35] LABS: Anion Gap 5 mEq/L (7-15); Blood Urea Nitrogen* 17 mg/dL (7-30); Calcium* 8.7 mg/dL (8.4-10.6); Carbon Dioxide* 30 mmol/L (20-32); Glucose* 109 mg/dL (60-115)
[2024-04-13 06:43] LABS: INR 1.16 (0.91-1.10); Prothrombin Time 15.6 Seconds
[2024-04-13 06:46] LABS: Troponin I* < 0.01 ng/mL (0.01-0.04)
[2024-04-13 06:48] LABS: C Reactive Protein* 14.2 mg/dL (0.5-1.0)
[2024-04-13 09:07] LABS: Partial Thromboplastin Time* 80 Seconds (23-33)
[2024-04-13] MEDS: SENNOSIDES/DOCUSATE TABLET PO ×2 (09:34→20:29)
[2024-04-13] MEDS: ACETAMINOPHEN 325 MG TABLET 650 MG PO ×3 (09:34→22:37)
--- NOTE | 2024-04-13 10:00 | P.IMPN_ITS ---
Progress Note: A&P Assessment and plan (1) Hypoxic respiratory failure: Problem details: Due to combination of chest wall trauma, pneumonia, pulmonary embolism. Good pulmonary toilet, pain control, antibiotics, anticoagulation Continues on high-flow oxygen with saturations upper 80s-lower 90s Respiratory therapy for pulmonary support, aerobika, incentive spirometry Status: Acute (2) Ribs, multiple fractures: Problem details: Right ribs 7,8 and 9 and left rib 11. Aggressive pain management to allow patient to cough, take deep breaths and perform ADLs Lidocaine patch, scheduled Tylenol, oxycodone or morphine p.r.n. Status: Acute (3) Pulmonary embolism: Problem details: Following chest trauma 04/08/2024. Initially started on heparin due to concern about bleeding from trauma - monitoring - hemoglobin 12.8, 15 on admission Apixaban 5 mg b.i.d., discontinue heparin Status: Acute (4) Pneumonia: Problem details: Right basilar pneumonia in the area of chest wall contusion/rib fractures. Possibly began is atelectasis or pulmonary contusion but now appears to be pneumonia likely related to poor clearance of secretions Continue IV ceftriaxone and azithromycin WBC trending down, CRP remains elevated. Last fever 100.5? less than 24 hours ago Status: Acute (5) Hypertension: Problem details: Hold lisinopril hydrochlorothiazide temporarily pending clinical course - pressures appropriate currently Status: Acute (6) Prostate nodule: Problem details: CT 04/12/2024 shows prostate nodules. With a history of marked PSA elevation of 40 in May 2023 this likely represents prostate cancer Outpatient follow-up with PCP following discharge Status: Acute (7) Cognitive impairment: Problem details: Patient has poor recall of a medical history. Evaluate with [place]. Assess functional capabilities OT consult Status: Acute Time Spent With Patient Total time spent: Total time spent caring for the patient today was 45 minutes. This includes time spent for the visit reviewing the chart, time spent during the visit, time spent after the visit and documentation and planning in coordination of care. Subjective Date Seen: 04/13/24 Interval history: Patient is seen sitting up on the edge of the bed, eating breakfast. In good spirits. Joking with staff. Reports rib cage pain tolerable currently. Sli ghtly worse with movement. Is not dyspneic with high-flow oxygen. Tolerating orals without nausea vomiting. Remains on high-flow oxygen. Saturations upper 80s, low 90s. WBC downtrending. CRP remains elevated. Respiratory therapy will assess this morning. Exam Narrative: Exam Narrative: PHYSICAL EXAM General: Pleasant, conversant, NAD HEENT: Normocephalic, atraumatic, sclera white, EOMI, oral mucosa moist Cardiovascular: RRR, S1S2. No pitting edema Pulmonary: Diffusely diminished, coarse right upper lobe. No expiratory wheezing. No dyspnea or use of accessory muscles on high-flow. Neurological: Alert, answering questions appropriately, cranial nerves intact, no focal findings Extremities: No gross joint deformity or swelling. AROMI. Neurovascularly intact Skin: Warm, dry. Const: Vital Signs, click to edit/add: Vital Signs - 24 hr 04/12/24 16:44 04/12/24 16:57 04/12/24 17:00 Temperature 99.2 F Pulse Rate Pulse Rate [Pulse Oximeter] 86 Respiratory Rate 32 H Blood Pressure Blood Pressure [Le ft Upper Arm] 167/97 H Blood Pressure [Ri ght Arm] Pulse Oximetry 88 95 Oxygen Delivery Me thod Room Air Nasal Cannula Oxygen Flow Rate 5 Fraction of Inspir ed Oxygen 04/12/24 17:17 04/12/24 17:30 04/12/24 17:33 Temperature Pulse Rate 97 81 95 Pulse Rate [Pulse Oximeter] Respiratory Rate Blood Pressure 153/92 H Blood Pressure [Le ft Upper Arm] Blood Pressure [Ri ght Arm] Pulse Oximetry 94 88 90 Oxygen Delivery Me thod Nasal Cannula Nasal Cannula Nasal Cannula Oxygen Flow Rate 5 5 5 Fraction of Inspir ed Oxygen 04/12/24 17:49 04/12/24 17:50 04/12/24 17:51 Temperature Pulse Rate 91 108 H 108 H Pulse Rate [Pulse Oximeter] Respiratory Rate Blood Pressure Blood Pressure [Le ft Upper Arm] Blood Pressure [Ri ght Arm] Pulse Oximetry 92 93 90 Oxygen Delivery Me thod OxyMask OxyMask OxyMask Oxygen Flow Rate 8 8 8 Fraction of Inspir ed Oxygen 04/12/24 18:00 04/12/24 18:02 04/12/24 18:03 Temperature Pulse Rate 106 H 98 100 Pulse Rate [Pulse Oximeter] Respiratory Rate Blood Pressure 146/92 H Blood Pressure [Le ft Upper Arm] Blood Pressure [Ri ght Arm] Pulse Oximetry 94 94 95 Oxygen Delivery Me thod OxyMask OxyMask OxyMask Oxygen Flow Rate 8 8 8 Fraction of Inspir ed Oxygen 04/12/24 18:04 04/12/24 18:15 04/12/24 18:17 Temperature Pulse Rate 91 95 Pulse Rate [Pulse Oximeter] Respiratory Rate 28 H Blood Pressure 111/79 Blood Pressure [Le ft Upper Arm] Blood Pressure [Ri ght Arm] Pulse Oximetry 93 90 Oxygen Delivery Me thod OxyMask OxyMask Oxygen Flow Rate 8 8 Fraction of Inspir ed Oxygen 04/12/24 18:30 04/12/24 18:32 04/12/24 18:45 Temperature Pulse Rate 95 86 89 Pulse Rate [Pulse Oximeter] Respiratory Rate Blood Pressure 124/77 Blood Pressure [Le ft Upper Arm] Blood Pressure [Ri ght Arm] Pulse Oximetry 95 93 93 Oxygen Delivery Me thod OxyMask OxyMask OxyMask Oxygen Flow Rate 8 8 8 Fraction of Inspir ed Oxygen 04/12/24 18:46 04/12/24 19:00 04/12/24 19:02 Temperature Pulse Rate 90 85 85 Pulse Rate [Pulse Oximeter] Respiratory Rate Blood Pressure 123/71 111/57 L Blood Pressure [Le ft Upper Arm] Blood Pressure [Ri ght Arm] Pulse Oximetry 94 92 92 Oxygen Delivery Me thod OxyMask OxyMask OxyMask Oxygen Flow Rate 8 8 8 Fraction of Inspir ed Oxygen 04/12/24 19:03 04/12/24 19:15 04/12/24 19:17 Temperature Pulse Rate 88 92 98 Pulse Rate [Pulse Oximeter] Respiratory Rate Blood Pressure 142/88 H Blood Pressure [Le ft Upper Arm] Blood Pressure [Ri ght Arm] Pulse Oximetry 91 95 98 Oxygen Delivery Me thod OxyMask OxyMask OxyMask Oxygen Flow Rate 8 8 8 Fraction of Inspir ed Oxygen 04/12/24 19:27 04/12/24 19:30 04/12/24 19:32 Temperature Pulse Rate 78 94 Pulse Rate [Pulse Oximeter] Respiratory Rate Blood Pressure 115/64 Blood Pressure [Le ft Upper Arm] Blood Pressure [Ri ght Arm] Pulse Oximetry 89 97 95 Oxygen Delivery Me thod OxyMask OxyMask Oxygen Flow Rate 8 8 Fraction of Inspir ed Oxygen 04/12/24 20:15 04/12/24 20:15 04/12/24 21:07 Temperature 101.3 F H Pulse Rate Pulse Rate [Pulse Oximeter] 54 L Respiratory Rate 24 24 Blood Pressure Blood Pressure [Le ft Upper Arm] Blood Pressure [Ri ght Arm] 142/67 H Pulse Oximetry 97 97 Oxygen Delivery Me thod Nasal Cannula Nasal Cannula Oxygen Flow Rate 5 5 Fraction of Inspir ed Oxygen 70 04/12/24 21:26 04/12/24 22:15 04/12/24 22:32 Temperature 101.3 F H 100.5 F H Pulse Rate 73 Pulse Rate [Pulse Oximeter] Respiratory Rate Blood Pressure Blood Pressure [Le ft Upper Arm] Blood Pressure [Ri ght Arm] Pulse Oximetry Oxygen Delivery Me thod Oxygen Flow Rate Fraction of Inspir ed Oxygen 04/12/24 23:00 04/12/24 23:07 04/12/24 23:10 Temperature Pulse Rate Pulse Rate [Pulse Oximeter] 71 Respiratory Rate 18 18 Blood Pressure Blood Pressure [Le ft Upper Arm] Blood Pressure [Ri ght Arm] Pulse Oximetry 93 Oxygen Delivery Me thod High Flow Nasal [place] Oxygen Flow Rate 40 Fraction of Inspir ed Oxygen 60 60 04/12/24 23:10 04/13/24 01:00 04/13/24 02:55 Temperature 99.7 F H Pulse Rate Pulse Rate [Pulse Oximeter] 71 Respiratory Rate 18 Blood Pressure Blood Pressure [Le ft Upper Arm] Blood Pressure [Ri ght Arm] 99/62 Pulse Oximetry 93 Oxygen Delivery Me thod High Flow Nasal [place] Oxygen Flow Rate 40 Fraction of Inspir ed Oxygen 60 50 60 04/13/24 02:56 04/13/24 04:53 04/13/24 07:00 Temperature 99.0 F Pulse Rate Pulse Rate [Pulse Oximeter] 65 Respiratory Rate 18 24 Blood Pressure Blood Pressure [Le ft Upper Arm] Blood Pressure [Ri ght Arm] 117/63 Pulse Oximetry 91 91 Oxygen Delivery Me thod High Flow Nasal Ca [place] High Flow Nasal Ca [place] Oxygen Flow Rate 40 40 Fraction of Inspir ed Oxygen 60 60 60 04/13/24 08:17 04/13/24 08:31 Temperature 98.3 F Pulse Rate Pulse Rate [Pulse Oximeter] 64 Respiratory Rate 24 Blood Pressure Blood Pressure [Le ft Upper Arm] Blood Pressure [Ri ght Arm] 126/77 Pulse Oximetry 95 Oxygen Delivery Me thod High Flow Nasal [place] Oxygen Flow Rate 40 Fraction of Inspir ed Oxygen 60 60 Labs Labs: Laboratory Results - last 24 hr 04/12/24 04/12/24 04/13/24 16:59 17:00 01:04 WBC 15.68 H RBC 4.90 Hgb 15.0 Hct 46.2 MCV 94 MCH 31 MCHC 33 RDW Coeff of Milka 12.8 Plt Count 293 Neut % (Auto) 82.3 H Lymph % (Auto) 6.4 L [place] % (Auto) 10.8 Eos % (Auto) 0.2 Baso % (Auto) 0.2 Neut # (Auto) 12.90 H Lymph # (Auto) 1.00 [place] # (Auto) 1.70 H Eos # (Auto) 0.00 Baso # (Auto) 0.00 Abs Immat Gran (auto) 0.00 Imm/Tot Granulo (auto) 0.1 INR 1.06 APTT 29 151 H* D-Dimer Quant (PE/DVT) 3.44 H VBG pH 7.422 VBG pCO2 46 VBG pO2 < 30.1 VBG HCO3 30 H Sodium 138 Potassium 4.1 Chloride 101 Carbon Dioxide 28 Anion Gap 9 BUN 20 Creatinine 0.7 Estimated Creat Clear 59.67 Estimated GFR 96 Glucose 133 H Lactate 1.7 Calcium 9.7 Total Bilirubin 1.3 AST 28 ALT 29 Alkaline Phosphatase 40 Total Creatine Kinase 59 Troponin I < 0.01 L C-Reactive Protein 6.0 H NT-Pro-B Natriuret Pep 306 Total Protein 7.9 Albumin 4.4 SARS-CoV-2 (PCR) Negative SARS-CoV-2 Influenza Type A (PCR) Negative PCR FLU A Influenza Type B (PCR) Negative PCR FLU B RSV (PCR) Negative PCR RSV POC Creatinine 0.7 POC Troponin I 0.00 L 04/13/24 04/13/24 05:57 08:45 WBC 14.89 H RBC 4.15 L Hgb 12.8 L Hct 39.5 MCV 95 MCH 31 MCHC 32 RDW Coeff of [place] 13.0 Plt Count 220 Neut % (Auto) 76.8 H Lymph % (Auto) 10.3 L [place] % (Auto) 12.2 H Eos % (Auto) 0.4 Baso % (Auto) 0.1 Neut # (Auto) 11.40 H Lymph # (Auto) 1.50 [place] # (Auto) 1.80 H Eos # (Auto) 0.10 Baso # (Auto) 0.00 Abs Immat Gran (auto) 0.00 Imm/Tot Granulo (auto) 0.2 INR 1.16 H APTT 80 H D-Dimer Quant (PE/DVT) VBG pH 7.409 VBG pCO2 48 VBG pO2 43.5 VBG HCO3 30 H Sodium 134 L Potassium 3.8 Chloride 99 Carbon Dioxide 30 Anion Gap 5 L BUN 17 Creatinine 0.6 Estimated Creat Clear 57.60 Estimated GFR 101 Glucose 109 Lactate Calcium 8.7 Total Bilirubin AST ALT Alkaline Phosphatase Total Creatine Kinase Troponin I < 0.01 L C-Reactive Protein 14.2 H NT-Pro-B Natriuret Pep Total Protein Albumin SARS-CoV-2 (PCR) Influenza Type A (PCR) Influenza Type B (PCR) RSV (PCR) POC Creatinine POC Troponin I
[2024-04-13] MEDS: LIDOCAINE 5% PATCH 1 PATCH TRANSDERMA (10:23)
[2024-04-13] MEDS: APIXABAN 5 MG TABLET PO (10:23)
--- NOTE | 2024-04-13 11:23 | RESP.RT ---
Pt seen this AM. Very pleasant gentleman. Decreased flow rate on HFNC. Wean as tolerates to keep SPO2 greater than 87%. Suspect pt has farmers lung. He does not feel or look short of breath when he does desaturate. He was not a smoker. Working well with IS. volumes of at least 1.0 L Continue with aggressive pulmonary hygiene. Keep pt in chair as much as possible, notably for meals. Will wean oxygen as tolerates.
[2024-04-13 15:38] LABS: Partial Thromboplastin Time* 39 Seconds (23-33)
[2024-04-13 15:47] LABS: Hemoglobin* 13.1 gm/dL (13.5-17.5)
[2024-04-13] MEDS: AZITHROMYCIN 250 MG TABLET 500 MG PO (17:17)
[2024-04-13] MEDS: cefTRIAXone 1 GM in 0.9 % SODIUM CHLORIDE Mini-bag 100 ML IVPB (17:17)
--- NOTE | 2024-04-13 18:47 | PC.NURSE ---
Pt pleasant, alert, oriented and vitally stable. Pt is 1a walker and gait belt and tolerates well. Pt up to chair and tolerates well. Pt on high flow O2, stats in low 90s. Pain 0/10 sitting in chair but increases to 7-9/10 with movement. pt on regular diet and tolerates well.
[2024-04-13] MEDS: APIXABAN 5 MG TABLET 10 MG PO (20:29)
[2024-04-13] MEDS: SODIUM CHLORIDE 0.9 % (FLUSH) 10 ML SYRINGE 5 ML IVF (20:30)
[2024-04-14] VITALS (15 sets, daily range): BP systolic 119–145; BP diastolic 66–77; PULSE 55–77; RESP 18–22; TEMP 36.7–37.1; O2SAT 90–97
[2024-04-14] MEDS: ACETAMINOPHEN 325 MG TABLET 650 MG PO ×3 (04:43→21:57)
[2024-04-14 06:20] LABS: Basophils Percent Auto 0.3 % (0.0-3.0); Eosinophils Percent Auto 1.1 % (0.0-7.0); Hematocrit 39.1 % (37.0-53.0); Hemoglobin* 12.7 gm/dL (13.5-17.5); Immature Granulocytes Pct Auto 0.2 %; Lymphocytes Percent Auto 13.6 % (20-44); Mean Corpuscular HGB Conc 33 gm/dL (32-36); Mean Corpuscular Hemoglobin 31 pg (26-34); Mean Corpuscular Volume 95 fL (80-100); Monocytes Percent Auto 13.6 % (0.0-11.0); Neutrophils Percent Auto 71.2 % (42.0-72.0); Platelet Count* 216 K/uL (140-440); RDW Coefficient of Variation % 12.8 % (11.5-15.5); White Blood Count* 11.77 K/uL (4.50-11.00)
[2024-04-14 06:29] LABS: Slide Review Reflex No
[2024-04-14 06:39] LABS: Chloride* 102 mmol/L (96-114)
[2024-04-14 06:40] LABS: Potassium* 4.1 mmol/L (3.6-5.1); Sodium* 134 mmol/L (135-149)
[2024-04-14 06:42] LABS: Creatinine* 0.6 mg/dL (0.5-1.5); Estimated Glomerular Filt Rate 101 ml/min
[2024-04-14 06:43] LABS: Anion Gap 3 mEq/L (7-15); Carbon Dioxide* 29 mmol/L (20-32); Glucose* 104 mg/dL (60-115)
[2024-04-14 07:11] LABS: Blood Urea Nitrogen* 15 mg/dL (7-30); C Reactive Protein* 19.6 mg/dL (0.5-1.0)
[2024-04-14] MEDS: SENNOSIDES/DOCUSATE TABLET PO ×2 (09:16→21:56)
[2024-04-14] MEDS: SODIUM CHLORIDE 0.9 % (FLUSH) 10 ML SYRINGE 5 ML IVF ×2 (09:17→21:56)
[2024-04-14] MEDS: APIXABAN 5 MG TABLET 10 MG PO ×2 (09:17→21:56)
[2024-04-14] MEDS: LIDOCAINE 5% PATCH 1 PATCH TRANSDERMA (09:17)
--- NOTE | 2024-04-14 09:24 | P.IMPN_ITS ---
Progress Note: A&P Assessment and plan (1) Hypoxic respiratory failure: Problem details: Due to combination of chest wall trauma, pneumonia, pulmonary embolism. Good pulmonary toilet, pain control, antibiotics, anticoagulation VBGs reassuring Continues on high-flow oxygen with saturations lower 90s, wean as able Respiratory therapy for pulmonary support, aerobika, incentive spirometry Status: Acute (2) Ribs, multiple fractures: Problem details: Right ribs 7,8 and 9 and left rib 11. Aggressive pain management to allow patient to cough, take deep breaths and perform ADLs Lidocaine patch, scheduled Tylenol, oxycodone or morphine p.r.n. Status: Acute (3) Pulmonary embolism: Problem details: Following chest trauma 04/08/2024. Initially started on heparin due to concern about bleeding from trauma - monitoring - hemoglobin 12.8, 15 on admission, 12.7 today Apixaban 10 mg b.i.d. x 7 days, followed by 5mg bid for at least 3 months with PCP follow up Status: Acute (4) Pneumonia: Problem details: Right basilar pneumonia in the area of chest wall contusion/rib fractures. 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 Lactate WNL. Last fever 100.3? 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 With a history of marked PSA elevation of 40 in May 2023 this likely represents prostate cancer Outpatient follow-up with PCP following discharge Status: Acute (7) Cognitive impairment: Problem details: Patient has poor recall of a medical history. Evaluate with [place] . Assess functional capabilities OT consult Outpatient follow up with PCP following discharge for further cognitive evaluation Status: Acute Time Spent With Patient Total time spent: Total time spent caring for the patient today was 45 minutes. This includes time spent for the visit reviewing the chart, time spent during the visit, time spent after the visit and documentation and planning in coordination of care. Subjective Date Seen: 04/14/24 Interval history: Patient is seen sitting up in a chair this morning. Reports feeling pretty good, better than yesterday. Remains on high-flow oxygen. Had a fever again of 100.3? last evening at 7:00 p.m.. WBC is trending down. CRP remains elevated. Patient reports ribcage pain slowly improving, lidocaine patch helpful. Exam Narrative: Exam Narrative: PHYSICAL EXAM General: Pleasant, conversant, NAD Cardiovascular: RRR, S1S2. No pitting edema Pulmonary: Remains diffusely diminished, coarse right upper lobe. No expiratory wheezing. No dyspnea or use of accessory muscles on high-flow. Neurological: Alert, answering questions appropriately, cranial nerves intact, no focal findings Extremities: No gross joint deformity or swelling. AROMI. Neurovascularly intact Skin: Warm, dry. Const: Vital Signs, click to edit/add: Vital Signs - 24 hr 04/13/24 10:00 04/13/24 11:21 04/13/24 12:42 Temperature 98.0 F Pulse Rate Pulse Rate [Pulse Oximeter] 51 L Respiratory Rate 16 Blood Pressure [Le ft Arm] Blood Pressure [Ri ght Arm] 136/76 Pulse Oximetry 97 Oxygen Delivery Me thod High Flow Nasal Ca nnula Oxygen Flow Rate 40 20 Fraction of Inspir ed Oxygen 60 60 60 04/13/24 15:00 04/13/24 15:00 04/13/24 16:00 Temperature 99.0 F Pulse Rate Pulse Rate [Pulse Oximeter] 63 63 Respiratory Rate 16 16 16 Blood Pressure [Le ft Arm] Blood Pressure [Ri ght Arm] 110/65 Pulse Oximetry 90 90 Oxygen Delivery Me thod High Flow Nasal Ca nnula High Flow Nasal Ca nnula Oxygen Flow Rate 30 30 Fraction of Inspir ed Oxygen 50 50 04/13/24 17:00 04/13/24 17:25 04/13/24 19:00 Temperature Pulse Rate 77 Pulse Rate [Pulse Oximeter] Respiratory Rate Blood Pressure [Le ft Arm] Blood Pressure [Ri ght Arm] Pulse Oximetry Oxygen Delivery Me thod Oxygen Flow Rate Fraction of Inspir ed Oxygen 50 50 04/13/24 19:00 04/13/24 19:27 04/13/24 21:00 Temperature 100.3 F H Pulse Rate Pulse Rate [Pulse Oximeter] 81 Respiratory Rate 20 Blood Pressure [Le ft Arm] Blood Pressure [Ri ght Arm] 127/68 Pulse Oximetry 95 95 Oxygen Delivery Me thod High Flow Nasal Ca nnula Oxygen Flow Rate 20 Fraction of Inspir ed Oxygen 50 50 04/13/24 22:42 04/13/24 22:42 04/13/24 23:00 Temperature 99.3 F Pulse Rate 56 L Pulse Rate [Pulse Oximeter] 64 Respiratory Rate 18 Blood Pressure [Le ft Arm] 138/74 Blood Pressure [Ri ght Arm] Pulse Oximetry 92 Oxygen Delivery Me thod High Flow Nasal Ca nnula Oxygen Flow Rate 30 Fraction of Inspir ed Oxygen 55 55 04/13/24 23:10 04/13/24 23:10 04/14/24 01:00 Temperature Pulse Rate Pulse Rate [Pulse Oximeter] 56 L Respiratory Rate 18 18 Blood Pressure [Le ft Arm] Blood Pressure [Ri ght Arm] Pulse Oximetry 92 Oxygen Delivery Me thod High Flow Nasal Ca nnula Oxygen Flow Rate 30 Fraction of Inspir ed Oxygen 55 55 04/14/24 03:00 04/14/24 04:43 04/14/24 05:37 Temperature 98.1 F Pulse Rate Pulse Rate [Pulse Oximeter] 71 Respiratory Rate 18 Blood Pressure [Le ft Arm] 145/77 H Blood Pressure [Ri ght Arm] Pulse Oximetry 93 Oxygen Delivery Me thod High Flow Nasal Ca nnula Oxygen Flow Rate 30 Fraction of Inspir ed Oxygen 55 55 55 04/14/24 07:00 04/14/24 07:30 04/14/24 07:30 Temperature 98.4 F Pulse Rate Pulse Rate [Pulse Oximeter] 68 Respiratory Rate 18 18 Blood Pressure [Le ft Arm] Blood Pressure [Ri ght Arm] 123/70 Pulse Oximetry 92 92 Oxygen Delivery Me thod High Flow Nasal Ca nnula High Flow Nasal Ca nnula Oxygen Flow Rate 30 30 Fraction of Inspir ed Oxygen 55 55 55 04/14/24 07:35 Temperature Pulse Rate Pulse Rate [Pulse Oximeter] 68 Respiratory Rate 18 Blood Pressure [Le ft Arm] Blood Pressure [Ri ght Arm] Pulse Oximetry Oxygen Delivery Me thod Oxygen Flow Rate Fraction of Inspir ed Oxygen Labs Labs: Laboratory Results - last 24 hr 04/13/24 04/13/24 04/14/24 15:00 15:43 05:43 WBC 11.77 H RBC 4.10 L Hgb 13.1 L 12.7 L Hct 39.1 MCV 95 MCH 31 MCHC 33 RDW Coeff of Milka 12.8 Plt Count 216 Neut % (Auto) 71.2 Lymph % (Auto) 13.6 L [place] % (Auto) 13.6 H Eos % (Auto) 1.1 Baso % (Auto) 0.3 Neut # (Auto) 8.40 H Lymph # (Auto) 1.60 [place] # (Auto) 1.60 H Eos # (Auto) 0.10 Baso # (Auto) 0.00 Abs Immat Gran (auto) 0.00 Imm/Tot Granulo (auto) 0.2 APTT 39 H Sodium 134 L Potassium 4.1 Chloride 102 Carbon Dioxide 29 Anion Gap 3 L BUN 15 Creatinine 0.6 Estimated Creat Clear 57.60 Estimated GFR 101 Glucose 104 Calcium 9.0 C-Reactive Protein 19.6 H
--- NOTE | 2024-04-14 11:37 | RESP.RT ---
Pt placed on Nc at 4.5L. Tolerated PT well with this low flow oxygen. Spo2 87-93% through out therapy. Does well with IS and aerobika, continue to encourage frequent use.
[2024-04-14 12:09] LABS: Lab Add On Test New Spec Needed
[2024-04-14 12:29] LABS: Legionella pneumo Ag Urine L. pneumo Negative (Negative); S pneumo Ag Urine S. pneumo Negative (Negative)
[2024-04-14] MEDS: AZITHROMYCIN 250 MG TABLET 500 MG PO (18:24)
[2024-04-14] MEDS: cefTRIAXone 1 GM in 0.9 % SODIUM CHLORIDE Mini-bag 100 ML IVPB (18:25)
--- NOTE | 2024-04-14 20:15 | PC.NURSE ---
Pt alert, oriented and vitally stable. Pt had periods of urinary incontinence throughout the shift. Pt removed off of high flow, placed on 4.5 L of nasal canula and tolerating well. Pt had more productive cough this evening with yello green sputum. Pt up in chair throughout shift and tolerated well. Pt of regular diet and tolerates well.
[2024-04-15] VITALS (7 sets, daily range): BP systolic 132–147; BP diastolic 77–81; PULSE 58–81; RESP 20–22; TEMP 36.6–36.9; O2SAT 90–92
[2024-04-15] MEDS: OXYCODONE 5 MG TABLET 2.5 MG PO (00:28)
[2024-04-15] MEDS: ACETAMINOPHEN 325 MG TABLET 650 MG PO ×4 (05:55→22:51)
--- NOTE | 2024-04-15 05:58 | PC.NURSE ---
[id number]: Patient pleasant and cooperative. A1/walker/GB. Tolerates movement well. Rates pain 3/10 with PRN medications for relief. Uses Aerobika and IS with encouragement. Intermittent productive cough. Titrated O2 from 4.5 Lt to 3.0 Lt NC. Denies N/V/CP. Denies SOB. Afebrile. Eating and voiding.
[2024-04-15 06:31] LABS: Basophils Absolute Auto 0.02 K/uL (0.00-0.30); Basophils Percent Auto 0.2 % (0.0-3.0); Eosinophils Absolute Auto 0.34 K/uL (0.00-0.50); Eosinophils Percent Auto 4.1 % (0.0-7.0); Hematocrit 40.1 % (37.0-53.0); Hemoglobin* 12.8 gm/dL (13.5-17.5); Immature Granulocytes Abs Auto 0.01 K/uL (0.00-0.30); Immature Granulocytes Pct Auto 0.1 %; Lymphocytes Absolute Auto 1.79 K/uL (0.90-2.90); Lymphocytes Percent Auto 21.5 % (20-44); Mean Corpuscular HGB Conc 32 gm/dL (32-36); Mean Corpuscular Hemoglobin 31 pg (26-34); Mean Corpuscular Volume 96 fL (80-100); Monocytes Percent Auto 14.9 % (0.0-11.0); Neutrophils Absolute Auto 4.94 K/uL (1.7-7.0); Neutrophils Percent Auto 59.2 % (42.0-72.0); Platelet Count* 232 K/uL (140-440); RDW Coefficient of Variation % 12.9 % (11.5-15.5); Red Blood Count 4.18 m/uL (4.30-5.90); White Blood Count* 8.34 K/uL (4.50-11.00)
[2024-04-15 06:34] LABS: Slide Review Reflex No
[2024-04-15 06:45] LABS: Chloride* 101 mmol/L (96-114); Potassium* 3.9 mmol/L (3.6-5.1); Sodium* 137 mmol/L (135-149)
[2024-04-15 06:47] LABS: Creatinine* 0.5 mg/dL (0.5-1.5); Estimated Glomerular Filt Rate 106 ml/min
[2024-04-15 06:48] LABS: Anion Gap 5 mEq/L (7-15); Blood Urea Nitrogen* 14 mg/dL (7-30); Calcium* 9.1 mg/dL (8.4-10.6); Carbon Dioxide* 31 mmol/L (20-32); Glucose* 96 mg/dL (60-115)
[2024-04-15 07:04] LABS: C Reactive Protein* 16.9 mg/dL (0.5-1.0)
[2024-04-15] MEDS: APIXABAN 5 MG TABLET 10 MG PO ×2 (09:16→20:25)
[2024-04-15] MEDS: SENNOSIDES/DOCUSATE TABLET PO ×2 (09:17→20:24)
[2024-04-15] MEDS: SODIUM CHLORIDE 0.9 % (FLUSH) 10 ML SYRINGE 5 ML IVF ×2 (09:17→20:26)
[2024-04-15] MEDS: LIDOCAINE 5% PATCH 1 PATCH TRANSDERMA (09:59)
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
[2024-04-15] MEDS: cefTRIAXone 1 GM in 0.9 % SODIUM CHLORIDE Mini-bag 100 ML IVPB (17:32)
[2024-04-15] MEDS: AZITHROMYCIN 250 MG TABLET 500 MG PO (17:32)
--- NOTE | 2024-04-15 17:56 | PC.NURSE ---
End of Shift Note: Patient has been up in the chair most of this shift. He has ambulated to the bathroom and back. Appears Alert and orientated. Have strongly enc him to keep up with doing his IS and aerobika. Have slowly weaned him down on his oxygen. At the start of the shift he was at 3 liters just recently took oxygen off. He is currently on room air at 91%. He also has been afebrile for 48 hours so also discontinued his droplet precautions. Will continue to monitor until next shift arrives.
[2024-04-15] MEDS: guaiFENesin 600 MG TAB.ER.12H PO ×2 (18:43→20:25)
[2024-04-16 02:53] VITALS: BP 176/93; PULSE 79; RESP 20; TEMP 37.2; O2SAT 92
[2024-04-16] MEDS: ACETAMINOPHEN 325 MG TABLET 650 MG PO ×2 (04:39→10:09)
--- NOTE | 2024-04-16 05:34 | PC.NURSE ---
Shift note: Pt is doing well with SBA, walker and GB to BR. Pt has been coughing frequently to clear his throat. He said I just want to cough out this thing that is stack in my throat. Pt is pleasant, alert and oriented but NEZ PERCE. Pt had adequate sleep, vitally stable.
[2024-04-16 06:19] LABS: Basophils Absolute Auto 0.03 K/uL (0.00-0.30); Basophils Percent Auto 0.3 % (0.0-3.0); Eosinophils Absolute Auto 0.31 K/uL (0.00-0.50); Eosinophils Percent Auto 3.5 % (0.0-7.0); Hematocrit 42.9 % (37.0-53.0); Hemoglobin* 13.8 gm/dL (13.5-17.5); Immature Granulocytes Abs Auto 0.03 K/uL (0.00-0.30); Immature Granulocytes Pct Auto 0.3 %; Lymphocytes Percent Auto 19.3 % (20-44); Mean Corpuscular HGB Conc 32 gm/dL (32-36); Mean Corpuscular Hemoglobin 31 pg (26-34); Mean Corpuscular Volume 95 fL (80-100); Neutrophils Absolute Auto 5.63 K/uL (1.7-7.0); Neutrophils Percent Auto 63.6 % (42.0-72.0); Platelet Count* 290 K/uL (140-440); RDW Coefficient of Variation % 12.6 % (11.5-15.5); White Blood Count* 8.86 K/uL (4.50-11.00)
[2024-04-16 06:43] LABS: Slide Review Reflex No
[2024-04-16 06:45] LABS: Chloride* 101 mmol/L (96-114); Sodium* 137 mmol/L (135-149)
[2024-04-16 06:46] LABS: Potassium* 3.9 mmol/L (3.6-5.1)
[2024-04-16 06:48] LABS: Anion Gap 6 mEq/L (7-15); Carbon Dioxide* 30 mmol/L (20-32); Creatinine* 0.6 mg/dL (0.5-1.5); Estimated Glomerular Filt Rate 101 ml/min
[2024-04-16 06:49] LABS: Blood Urea Nitrogen* 17 mg/dL (7-30); Calcium* 9.5 mg/dL (8.4-10.6); Glucose* 99 mg/dL (60-115)
[2024-04-16 08:00] VITALS: BP 157/82; PULSE 74; RESP 18; TEMP 36.7; O2SAT 94
[2024-04-16] MEDS: guaiFENesin 600 MG TAB.ER.12H PO (08:49)
[2024-04-16] MEDS: APIXABAN 5 MG TABLET 10 MG PO (08:49)
[2024-04-16] MEDS: SENNOSIDES/DOCUSATE TABLET PO (08:49)
[2024-04-16] MEDS: SODIUM CHLORIDE 0.9 % (FLUSH) 10 ML SYRINGE 5 ML IVF (08:50)
--- NOTE | 2024-04-16 09:48 | PC.SOCIAL ---
Discharge planning: Social work computer science intern and health care social worker met with pt to discuss discharge options. Pt stated that he would like to go home and not to a SNF. Per physical therapy, pt is moving independently. Pt said he lives with his in a 1-story house and that she is in good health. Pt's son and grandson also work on the property. carry in worker discussed outpatient OT/PT and pt said he would discuss more with doctor. carry in worker to follow up as needed.
[2024-04-16] MEDS: LIDOCAINE 5% PATCH 1 PATCH TRANSDERMA (10:07)
[2024-04-16 11:00] VITALS: BP 133/82; PULSE 78; RESP 18; TEMP 36.7; O2SAT 94
[2024-04-16] MEDS: AZITHROMYCIN 250 MG TABLET 500 MG PO (12:02)
[2024-04-16] MEDS: cefTRIAXone 1 GM in 0.9 % SODIUM CHLORIDE Mini-bag 100 ML IVPB (12:02)
--- NOTE | 2024-04-16 13:47 | PC.NURSE ---
Discharged: pt alert, oriented and vitally stable. Pt was removed from o2 via NC, stats stayed in the 90-94 % range. Pt on regular diet and tolerated well. Pt stand by assist and tolerated well. Discharge information given to pt and spouse, topics included medication, fall prevention, follow up and symptoms worsening. Discharged home with spouse at 1339.
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
== END 2024-04-16 13:39 | disposition home or self-care (01) | DRG 183 ==
LOC: ED 19:40 → MEDSURG 19:44
PROVIDERS: Physician Assistant; Admitting Provider Family Medicine; Emergency Provider Family Medicine; Visit Provider Family Medicine
DX: S22.43XA Multiple fractures of ribs, bilateral, initial encounter for closed fracture (principal); I26.93 Single subsegmental thrombotic pulmonary embolism without acute cor pulmonale; J96.01 Acute respiratory failure with hypoxia; J18.9 Pneumonia, unspecified organism; R26.81 Unsteadiness on feet; R41.89 Other symptoms and signs involving cognitive functions and awareness; W30.81XA Contact with agricultural transport vehicle in stationary use, initial encounter; Y92.79 Other farm location as the place of occurrence of the external cause; I10 Essential (primary) hypertension; N40.2 Nodular prostate without lower urinary tract symptoms
CPT/HCPCS: 36415; 71045; 71260; 74177; 80048; 80053; 82550; 82565; 82803; 83605; 83880; 84484; 85018; 85025; 85027; 85379; 85610; 85730; 86140; 87449; 87631; 87899; 93005; 94664; 94761; 97110; 97116; 97162; 97165; 97530; 97535; 99284; 99285; A9270; J0456; J0696; J1644; J2405; J3010; J7050; Q9967